=== PATIENT | male | born 1945 | race Caucasian/White ===

== ENCOUNTER → 2017-02-01 | Outpatient (CLI) | payer MEDICARE, MEDICAID ==
[~2017-02-01] MED LIST: ALBU0.63 NEB; ASPI-515 PO; ASPI-770 PO; CYCL-259 PO; DIAZ10TA PO; GABA100C8 PO; IBUP400T PO; LISI-167 PO; LISI10TA PO; LISI2.5T PO; LISI5TAB7 PO; LORA-446 PO; MELO15TA6; METH500T97 PO; METO25TA35 PO; METO25TA91 PO; NICO1PAT10 TD; NICO1PAT5 TD; NITR0.4T SL; NITR0.4T8 SL; OXYC10TA6 PO; PANT40TA3 PO; TIOT18CA INH; TRAM-28 PO; TRAM50TA2; TRAM50TA2 PO
[2017-02-01 13:46] LABS: BLOOD UREA NITROGEN 24 mg/dL (7-18)
[2017-02-01 13:50] LABS: ASPARTATE AMINO TRANSFERASE 15 U/L (15-37)
== END | disposition home or self-care (01) ==
LOC: LAB 11:06
PROVIDERS: ATTEND Nurse Practitioner Family
DX: I10 Essential (primary) hypertension (principal); K86.1 Other chronic pancreatitis; E78.2 Mixed hyperlipidemia; M43.06 Spondylolysis, lumbar region; R05 Cough
CPT/HCPCS: 36415; 80053; 80061; 85025

== ENCOUNTER 2017-03-06 12:49 | Observation (INO) | payer MEDICARE, MEDICAID ==
[~2017-03-06] VITALS: Ht 170.2 cm; Wt 66.9 kg
[2017-03-06] MEDS ORDERED: ASPIRIN 81 MG TABLET CHEW PO ONE (13:30)
[2017-03-06] MEDS ORDERED: METO25TA35 PO (13:39)
[2017-03-06] MEDS ORDERED: SIMV20TA3 PO (13:39)
[2017-03-06 14:09] LABS: BLOOD UREA NITROGEN 23 mg/dL (7-18)
[2017-03-06 14:14] LABS: ASPARTATE AMINO TRANSFERASE 23 U/L (15-37)
[2017-03-06 14:18] LABS: IS PT STATUS REG ER OR PRE ER? YES
[2017-03-06] MEDS ORDERED: ENALAPRILAT 1.25 MG/ML, 2ML ONE (16:23)
[2017-03-06] MEDS ORDERED: METHOCARBAMOL 500 MG TABLET PO PRN (16:30)
[2017-03-06] MEDS ORDERED: DOCUSATE 100 MG CAPSULE PO PRN (16:30)
[2017-03-06] MEDS ORDERED: NITROGLYCERIN 0.4 MG BOTTLE (25 TABS) SL PRN (16:30)
[2017-03-06] MEDS ORDERED: ENALAPRILAT 1.25 MG/ML, 2ML IV PRN (16:30)
[2017-03-06] MEDS ORDERED: POLYETHYLENE GLYCOL 17 GM PACKET PO PRN (16:30)
[2017-03-06] MEDS ORDERED: BISACODYL 10 MG SUPP PR PRN (16:30)
[2017-03-06] MEDS ORDERED: ACETAMINOPHEN 325 MG TABLET PO PRN (16:30)
[2017-03-06 17:10] VITALS: BP 155/77
[2017-03-06] MEDS ORDERED: NICOTINE 14MG/24 HR PATCH.TD24 TD SCH (17:30)
[2017-03-06 19:16] LABS: IS PT STATUS REG ER OR PRE ER? NO
[2017-03-06 20:01] VITALS: BP 102/60
[2017-03-06] MEDS: FAMOTIDINE 20 MG TABLET PO SCH (20:08)
[2017-03-06] MEDS: METOPROLOL TARTRATE 25 MG TABLET PO SCH (20:08)
[2017-03-06] MEDS ORDERED: SIMVASTATIN 20 MG TABLET PO SCH (21:00)
[2017-03-06] MEDS ORDERED: TEMAZEPAM 15 MG CAPSULE PO PRN (22:00)
[2017-03-07 01:40] LABS: IS PT STATUS REG ER OR PRE ER? NO
[2017-03-07 01:44] VITALS: BP 95/64
[2017-03-07 06:04] LABS: BLOOD UREA NITROGEN 26 mg/dL (7-18)
[2017-03-07 08:09] VITALS: BP 124/74
[2017-03-07] MEDS ORDERED: REGADENOSON 0.4 MG/5 ML SYRINGE ONE (08:14)
[2017-03-07] MEDS: FAMOTIDINE 20 MG TABLET PO SCH (08:16)
[2017-03-07] MEDS: METOPROLOL TARTRATE 25 MG TABLET PO SCH (08:16)
[2017-03-07] MEDS ORDERED: FOLIC ACID 1 MG TABLET PO SCH (09:00)
[2017-03-07] MEDS ORDERED: THIAMINE 100MG TABLET PO SCH (09:00)
[2017-03-07] MEDS ORDERED: DIAZEPAM 5 MG TABLET PO STA (09:11)
[2017-03-07] MEDS ORDERED: DIAZEPAM 5 MG TABLET ONE (09:15)
[2017-03-07 13:48] VITALS: BP 115/68
[2017-03-07] MEDS ORDERED: SIMV20TA3 PO (17:00)
[2017-03-07] MEDS ORDERED: METO25TA35 PO (17:00)
== END 2017-03-07 17:53 | disposition home or self-care (01) ==
LOC: ED 14:17 → INTOOBSV 15:12 → EDIP 15:12 → 5SO 17:04
PROVIDERS: ADMIT Hospitalist; ATTEND Family Medicine
DX: R07.2 Precordial pain (principal); Z86.73 Personal history of transient ischemic attack (TIA), and cerebral infarction without residual deficits; I10 Essential (primary) hypertension; I25.2 Old myocardial infarction; G89.29 Other chronic pain; M54.9 Dorsalgia, unspecified; F17.210 Nicotine dependence, cigarettes, uncomplicated; Z95.1 Presence of aortocoronary bypass graft; I25.10 Atherosclerotic heart disease of native coronary artery without angina pectoris; E78.5 Hyperlipidemia, unspecified
CPT/HCPCS: 36415; 71010; 78452; 80048; 80053; 80061; 84484; 85025; 93005; 93017; 96374; 99285; A9502; C9898; G0378; J2785

== ENCOUNTER 2017-03-11 11:41 | Emergency (ER) | payer MEDICARE, MEDICAID ==
[~2017-03-11] VITALS: Ht 165.1 cm; Wt 65.5 kg
[~2017-03-11 11:41] MED LIST changes: +SIMV20TA3 PO
[2017-03-11] MEDS ORDERED: KETOROLAC 30 MG/1 ML ONE (12:29)
[2017-03-11] MEDS ORDERED: ONDANSETRON 2MG/ML, 2ML ONE (12:29)
[2017-03-11] MEDS ORDERED: [UNRECOGNIZED DRUG - REMARK] MC SCH (12:30)
[2017-03-11] MEDS ORDERED: SODIUM CHLORIDE FLUSH 10ML SYR IVF ONE (12:30)
[2017-03-11] MEDS ORDERED: KETOROLAC 30 MG/1 ML IV ONE (12:30)
[2017-03-11] MEDS ORDERED: ONDANSETRON 2MG/ML, 2ML IVPush ONE (12:30)
[2017-03-11] MEDS ORDERED: MORPHINE SULFATE 4 MG/ML, 1ML ONE ×2 (13:25→14:38)
[2017-03-11] MEDS: MORPHINE SULFATE 4 MG/ML, 1ML IVPush PRN ×2 (13:34→14:39)
[2017-03-11 14:36] VITALS: BP 111/65
== END 2017-03-11 15:24 | disposition home or self-care (01) ==
LOC: ED 15:18
DX: S39.012A Strain of muscle, fascia and tendon of lower back, initial encounter (principal); M51.36 Other intervertebral disc degeneration, lumbar region; I11.9 Hypertensive heart disease without heart failure; E11.9 Type 2 diabetes mellitus without complications; Z95.1 Presence of aortocoronary bypass graft; Z90.89 Acquired absence of other organs; W19.XXXA Unspecified fall, initial encounter; Y93.89 Activity, other specified; Y99.8 Other external cause status; Y92.009 Unspecified place in unspecified non-institutional (private) residence as the place of occurrence of the external cause
CPT/HCPCS: 70450; 72110; 96374; 96375; 96376; 99284; J2405

== ENCOUNTER 2017-03-30 08:41 | Emergency (ER) | payer MEDICARE, MEDICAID ==
[~2017-03-30] VITALS: Ht 170.2 cm; Wt 68.5 kg
[~2017-03-30 08:41] MED LIST changes: +GABA-826 PO; -GABA100C8 PO
[2017-03-30 08:43] VITALS: BP 146/78
[2017-03-30] MEDS ORDERED: HYDROcodone/APAP 5/325 TABLET PO PRN (10:00)
[2017-03-30] MEDS ORDERED: HYDROcodone/APAP 5/325 TABLET ONE (10:05)
== END 2017-03-30 10:12 | disposition home or self-care (01) ==
LOC: ED 10:10
DX: M54.41 Lumbago with sciatica, right side (principal); E11.9 Type 2 diabetes mellitus without complications; M19.90 Unspecified osteoarthritis, unspecified site; I25.2 Old myocardial infarction; G89.29 Other chronic pain

== ENCOUNTER 2017-04-12 16:49 | Emergency (ER) | payer MEDICARE, MEDICAID ==
[~2017-04-12] VITALS: Ht 170.2 cm; Wt 65.0 kg
[2017-04-12 17:02] VITALS: BP 166/91
[2017-04-12] MEDS ORDERED: SODIUM CHLORIDE FLUSH 10ML SYR IVF ONE (17:30)
[2017-04-12 17:51] LABS: ASPARTATE AMINO TRANSFERASE 21 U/L (15-37); BLOOD UREA NITROGEN 13 mg/dL (7-18)
[2017-04-12 17:55] LABS: IS PT STATUS REG ER OR PRE ER? YES
[2017-04-12] MEDS ORDERED: SODIUM CHLORIDE 0.9% 1,000 ML IV ONE (18:00)
== END 2017-04-12 20:35 | disposition left against medical advice (07) ==
LOC: ED 20:29
DX: R53.1 Weakness (principal); W19.XXXA Unspecified fall, initial encounter; Y93.89 Activity, other specified; Y99.8 Other external cause status; Y92.89 Other specified places as the place of occurrence of the external cause
CPT/HCPCS: 36415; 70450; 71010; 80053; 83880; 84484; 85025; 93005; 99285

== ENCOUNTER 2017-06-27 04:47 | Inpatient (IN) | payer MEDICARE, MEDICAID ==
[~2017-06-27] VITALS: Ht 162.6 cm; Wt 67.8 kg
[~2017-06-27 04:47] MED LIST changes: +IBUP-1221 PO; -IBUP400T PO; +NICO-485 TD; +NICO-487 TD; -NICO1PAT10 TD; -NICO1PAT5 TD; +NITR0.4T28 SL; -NITR0.4T8 SL; -TRAM-28 PO; +TRAM-47 PO
[2017-06-27] MEDS ORDERED: ALBUTEROL/IPRATROPIUM 2.5MG/0.5MG, 3 ML NPPB ONE (05:30)
[2017-06-27] MEDS ORDERED: ALBUTEROL/IPRATROPIUM 2.5MG/0.5MG, 3 ML ONE (05:32)
[2017-06-27 06:25] LABS: HEMATOCRIT 37.6 % (39.2-51.8); HEMOGLOBIN 12.6 g/dL (13.7-18.0); WHITE BLOOD COUNT 12.1 x10^3/uL (3.4-10)
[2017-06-27 06:35] LABS: BLOOD UREA NITROGEN 13 mg/dL (7-18)
[2017-06-27 06:43] LABS: IS PT STATUS REG ER OR PRE ER? YES
[2017-06-27] MEDS ORDERED: FUROSEMIDE 40 MG/4 ML IV ONE (07:00)
[2017-06-27] MEDS ORDERED: ASPIRIN 81 MG TABLET CHEW PO ONE (07:00)
[2017-06-27] MEDS ORDERED: FUROSEMIDE 40 MG/4 ML ONE (07:42)
[2017-06-27 08:29] VITALS: BP 119/58
[2017-06-27] MEDS: NICOTINE 7 MG/24 HR PATCH.TD24 TD SCH (10:30)
[2017-06-27] MEDS ORDERED: GUAIFENESIN/DM 200-20MG, 10ML UDC PO PRN (10:30)
[2017-06-27] MEDS ORDERED: METHOCARBAMOL 500 MG TABLET PO PRN (10:30)
[2017-06-27] MEDS ORDERED: BISACODYL 10 MG SUPP PR PRN (10:30)
[2017-06-27] MEDS ORDERED: ACETAMINOPHEN 325 MG TABLET PO PRN (10:30)
[2017-06-27] MEDS ORDERED: PROMETHAZINE 25 MG/ML, 1ML IM PRN (10:30)
[2017-06-27] MEDS ORDERED: DOCUSATE 100 MG CAPSULE PO PRN (10:30)
[2017-06-27] MEDS ORDERED: POLYETHYLENE GLYCOL 17 GM PACKET PO PRN (10:30)
[2017-06-27] MEDS: DOXYCYCLINE 100 MG in DEXTROSE 5% 250 ML IV SCH ×2 (11:31→23:42)
[2017-06-27] MEDS: methylPREDNISolone SOD SUCC 125 MG/2 ML IVPush SCH ×3 (11:33→23:42)
[2017-06-27] MEDS: ENOXAPARIN 40 MG/0.4 ML SQ SCH (11:34)
[2017-06-27] MEDS ORDERED: ALBUTEROL SULFATE 2.5 MG/3 ML ONE (15:58)
[2017-06-27] MEDS ORDERED: ALBUTEROL SULFATE 2.5 MG/3 ML NPPB PRN (16:00)
[2017-06-27 16:04] VITALS: BP 129/80
[2017-06-27] MEDS: FUROSEMIDE 20 MG/2 ML IV SCH (17:45)
[2017-06-27 19:30] VITALS: BP 113/53
[2017-06-27] MEDS: SIMVASTATIN 20 MG TABLET PO SCH (19:54)
[2017-06-27 19:55] VITALS: BP 129/73
[2017-06-27] MEDS: METOPROLOL TARTRATE 25 MG TABLET PO SCH (19:55)
[2017-06-28 02:00] VITALS: BP 116/70
[2017-06-28] MEDS: methylPREDNISolone SOD SUCC 125 MG/2 ML IVPush SCH ×5 (05:47→22:30)
[2017-06-28 06:12] LABS: HEMATOCRIT 43.8 % (39.2-51.8); HEMOGLOBIN 14.4 g/dL (13.7-18.0); WHITE BLOOD COUNT 18.8 x10^3/uL (3.4-10)
[2017-06-28 06:20] LABS: BLOOD UREA NITROGEN 28 mg/dL (7-18)
[2017-06-28 06:32] LABS: ASPARTATE AMINO TRANSFERASE 12 U/L (15-37)
[2017-06-28 08:25] VITALS: BP 138/67
[2017-06-28] MEDS: SENNA/DOCUSATE TABLET PO SCH (09:00)
[2017-06-28] MEDS: FUROSEMIDE 20 MG/2 ML IV SCH ×2 (09:06→17:52)
[2017-06-28] MEDS: METOPROLOL TARTRATE 25 MG TABLET PO SCH ×2 (09:06→21:44)
[2017-06-28] MEDS: NICOTINE 7 MG/24 HR PATCH.TD24 TD SCH (10:30)
[2017-06-28] MEDS: DOXYCYCLINE 100 MG in DEXTROSE 5% 250 ML IV SCH ×2 (11:00→21:45)
[2017-06-28] MEDS: ENOXAPARIN 40 MG/0.4 ML SQ SCH (12:05)
[2017-06-28 14:00] VITALS: BP 115/68
[2017-06-28 20:00] VITALS: BP 124/61
[2017-06-28] MEDS: SIMVASTATIN 20 MG TABLET PO SCH (21:44)
[2017-06-28] MEDS: ONDANSETRON 2MG/ML, 2ML IVPush PRN (21:46)
[2017-06-29 02:00] VITALS: BP 114/75
[2017-06-29] MEDS: methylPREDNISolone SOD SUCC 125 MG/2 ML IVPush SCH ×3 (04:44→16:50)
[2017-06-29 05:45] LABS: BLOOD UREA NITROGEN 31 mg/dL (7-18)
[2017-06-29 05:56] LABS: HEMATOCRIT 42.3 % (39.2-51.8); HEMOGLOBIN 14.2 g/dL (13.7-18.0); WHITE BLOOD COUNT 23.5 x10^3/uL (3.4-10)
[2017-06-29 07:16] VITALS: BP 131/69
[2017-06-29] MEDS: NICOTINE 7 MG/24 HR PATCH.TD24 TD SCH (11:43)
[2017-06-29] MEDS: SENNA/DOCUSATE TABLET PO SCH (11:43)
[2017-06-29] MEDS: METOPROLOL TARTRATE 25 MG TABLET PO SCH ×2 (11:43→19:58)
[2017-06-29] MEDS: FUROSEMIDE 20 MG/2 ML IV SCH ×2 (11:43→16:50)
[2017-06-29] MEDS: ENOXAPARIN 40 MG/0.4 ML SQ SCH (11:44)
[2017-06-29] MEDS: DOXYCYCLINE 100 MG in DEXTROSE 5% 250 ML IV SCH (11:49)
[2017-06-29 12:32] VITALS: BP 119/63
[2017-06-29 18:41] VITALS: BP 105/55
[2017-06-29] MEDS: SIMVASTATIN 20 MG TABLET PO SCH (19:58)
[2017-06-30] MEDS: DOXYCYCLINE 100 MG in DEXTROSE 5% 250 ML IV SCH ×2 (00:07→12:17)
[2017-06-30] MEDS: methylPREDNISolone SOD SUCC 125 MG/2 ML IVPush SCH ×4 (00:07→17:47)
[2017-06-30 01:19] VITALS: BP 114/61
[2017-06-30] MEDS: ONDANSETRON 2MG/ML, 2ML IVPush PRN (05:12)
[2017-06-30 06:32] VITALS: BP 109/59
[2017-06-30] MEDS: SENNA/DOCUSATE TABLET PO SCH (09:00)
[2017-06-30] MEDS: FUROSEMIDE 20 MG/2 ML IV SCH ×2 (09:04→17:47)
[2017-06-30] MEDS: METOPROLOL TARTRATE 25 MG TABLET PO SCH ×2 (09:04→20:23)
[2017-06-30] MEDS: NICOTINE 7 MG/24 HR PATCH.TD24 TD SCH (12:00)
[2017-06-30] MEDS: ENOXAPARIN 40 MG/0.4 ML SQ SCH (12:23)
[2017-06-30 12:30] VITALS: BP 106/56
[2017-06-30 18:26] VITALS: BP 107/54
[2017-06-30] MEDS: SIMVASTATIN 20 MG TABLET PO SCH (20:23)
[2017-07-01] MEDS: DOXYCYCLINE 100 MG in DEXTROSE 5% 250 ML IV SCH ×3 (00:03→23:46)
[2017-07-01] MEDS: methylPREDNISolone SOD SUCC 125 MG/2 ML IVPush SCH ×5 (00:03→23:46)
[2017-07-01 02:08] VITALS: BP 125/60
[2017-07-01 04:56] LABS: HEMATOCRIT 43.7 % (39.2-51.8); HEMOGLOBIN 14.8 g/dL (13.7-18.0); WHITE BLOOD COUNT 19.2 x10^3/uL (3.4-10)
[2017-07-01 05:11] LABS: BLOOD UREA NITROGEN 29 mg/dL (7-18)
[2017-07-01 07:22] VITALS: BP 144/65
[2017-07-01] MEDS: FUROSEMIDE 20 MG/2 ML IV SCH ×2 (08:18→17:15)
[2017-07-01] MEDS: METOPROLOL TARTRATE 25 MG TABLET PO SCH ×2 (08:18→22:00)
[2017-07-01] MEDS: SENNA/DOCUSATE TABLET PO SCH (08:19)
[2017-07-01] MEDS: NICOTINE 7 MG/24 HR PATCH.TD24 TD SCH (12:00)
[2017-07-01] MEDS: ENOXAPARIN 40 MG/0.4 ML SQ SCH (12:12)
[2017-07-01 12:43] VITALS: BP 120/65
[2017-07-01 19:35] VITALS: BP 104/59
[2017-07-01] MEDS: SIMVASTATIN 20 MG TABLET PO SCH (22:00)
[2017-07-02 02:58] VITALS: BP 131/61
[2017-07-02 05:32] LABS: HEMATOCRIT 44.3 % (39.2-51.8); HEMOGLOBIN 14.7 g/dL (13.7-18.0); WHITE BLOOD COUNT 20.8 x10^3/uL (3.4-10)
[2017-07-02 05:49] LABS: BLOOD UREA NITROGEN 33 mg/dL (7-18)
[2017-07-02] MEDS: methylPREDNISolone SOD SUCC 125 MG/2 ML IVPush SCH (06:31)
[2017-07-02 07:32] VITALS: BP 141/75
[2017-07-02] MEDS: METOPROLOL TARTRATE 25 MG TABLET PO SCH (08:39)
[2017-07-02] MEDS: FUROSEMIDE 20 MG/2 ML IV SCH (08:39)
[2017-07-02] MEDS: SENNA/DOCUSATE TABLET PO SCH (08:39)
[2017-07-02] MEDS ORDERED: ENOX40SY4 SQ (11:54)
[2017-07-02] MEDS ORDERED: PRED10TA PO (11:54)
[2017-07-02] MEDS ORDERED: ALBU2.5V NPPB (11:54)
[2017-07-02] MEDS ORDERED: NICO-485 TD (11:54)
[2017-07-02] MEDS ORDERED: POLY17PO5 PO (11:54)
[2017-07-02] MEDS ORDERED: FURO20TA3 PO (11:54)
[2017-07-02] MEDS ORDERED: METO25TA35 PO (11:54)
[2017-07-02] MEDS ORDERED: DOCU-131 PO (11:54)
[2017-07-02] MEDS ORDERED: DOXY100T PO (11:54)
[2017-07-02] MEDS ORDERED: BISA10SU65 PR (11:54)
[2017-07-02] MEDS ORDERED: SPIR25TA PO (11:54)
[2017-07-02] MEDS ORDERED: FLUT1AER INH (11:56)
[2017-07-02] MEDS: ENOXAPARIN 40 MG/0.4 ML SQ SCH (12:00)
[2017-07-02] MEDS: NICOTINE 7 MG/24 HR PATCH.TD24 TD SCH (12:00)
[2017-07-02 13:49] VITALS: BP 117/67
[2017-07-02] MEDS ORDERED: DOXYCYCLINE 100MG TABLET PO SCH (21:00)
[2017-07-03] MEDS ORDERED: SPIRONOLACTONE 25 MG TABLET PO SCH (09:00)
[2017-07-03] MEDS ORDERED: FUROSEMIDE 20 MG TABLET PO SCH (09:00)
== END 2017-07-02 18:00 | DRG 871 ==
LOC: ED 06:57 → 4WST 06:58 → ED 08:00 → 4WST 08:15 → ED 08:15
PROVIDERS: ADMIT Internal Medicine; ATTEND Internal Medicine
DX: A41.9 Sepsis, unspecified organism (principal); J96.21 Acute and chronic respiratory failure with hypoxia; E43 Unspecified severe protein-calorie malnutrition; I50.33 Acute on chronic diastolic (congestive) heart failure; J18.9 Pneumonia, unspecified organism; I11.0 Hypertensive heart disease with heart failure; I69.954 Hemiplegia and hemiparesis following unspecified cerebrovascular disease affecting left non-dominant side; G62.9 Polyneuropathy, unspecified; D63.8 Anemia in other chronic diseases classified elsewhere; J44.0 Chronic obstructive pulmonary disease with (acute) lower respiratory infection; E87.1 Hypo-osmolality and hyponatremia; J44.1 Chronic obstructive pulmonary disease with (acute) exacerbation; E86.1 Hypovolemia; E78.5 Hyperlipidemia, unspecified; F10.20 Alcohol dependence, uncomplicated; G89.29 Other chronic pain; F17.210 Nicotine dependence, cigarettes, uncomplicated; F19.10 Other psychoactive substance abuse, uncomplicated; I25.10 Atherosclerotic heart disease of native coronary artery without angina pectoris; I08.0 Rheumatic disorders of both mitral and aortic valves; I73.9 Peripheral vascular disease, unspecified; T38.0X5A Adverse effect of glucocorticoids and synthetic analogues, initial encounter; Z95.1 Presence of aortocoronary bypass graft; I25.2 Old myocardial infarction; Z79.899 Other long term (current) drug therapy; Z88.6 Allergy status to analgesic agent
CPT/HCPCS: 36415; 71010; 80048; 80053; 82040; 83605; 83735; 83880; 84100; 84145; 84439; 84443; 84484; 85025; 87040; 93005; 93306; 94640; 96374; J1650; J1940; J2405; J7060; J7613; J7620; J2930; J7512

== ENCOUNTER 2017-11-04 22:17 | Emergency (ER) | payer MEDICARE, MEDICAID ==
[~2017-11-04] VITALS: Ht 170.2 cm; Wt 70.1 kg
[~2017-11-04 22:17] MED LIST changes: +ALBU2.5V NPPB; +BISA10SU65 PR; +DOCU-131 PO; +DOXY100T PO; +ENOX40SY4 SQ; +FLUT1AER INH; +FURO20TA3 PO; +POLY17PO5 PO; +PRED10TA PO; +SPIR25TA PO
[2017-11-04 23:03] LABS: BASOPHILS # (AUTO) 0.03 x10^3/uL (0-0.1); BASOPHILS % (AUTO) 0 % (0-1); EOSINOPHILS % (AUTO) 7 % (1-7); LYMPHOCYTES # (AUTO) 2.39 x10^3/uL (1-3.4); LYMPHOCYTES % (AUTO) 26 % (22-44); MD NO; MEAN CORPUSCULAR HEMOGLOBIN 31.6 pg (27.5-34.5); MEAN CORPUSCULAR HGB CONC 33.3 g/dL (33.2-36.2); MEAN CORPUSCULAR VOLUME 94.8 fL (81-97); MEAN PLATELET VOLUME 8.2 fL (7.4-10.4); MONOCYTES # (AUTO) 0.81 x10^3/uL (0.2-0.8); MONOCYTES % (AUTO) 9 % (2-9); NEUTROPHILS # (AUTO) 5.27 x10^3/uL (1.8-6.8); NEUTROPHILS % (AUTO) 58 % (42-75); PLATELET COUNT 272 x10^3/uL (130-400); RED CELL DISTRIBUTION WIDTH 13.9 % (9.4-14.8)
[2017-11-04 23:13] LABS: ALANINE AMINOTRANSFERASE 25 U/L (12-78); ALBUMIN 3.4 g/dL (3.4-5.0); ANION GAP 9 mmol/L (5-15); CALCIUM 8.7 mg/dL (8.5-10.1); CHLORIDE 108 mmol/L (98-107); CREATININE 0.97 mg/dL (0.7-1.3)
[2017-11-04 23:18] LABS: ALKALINE PHOSPHATASE 85 U/L (45-117); BILIRUBIN,TOTAL 0.2 mg/dL (0.2-1.0); TOTAL PROTEIN 7.6 g/dL (6.4-8.2); TROPONIN I < 0.015 ng/mL (0.000-0.045)
[2017-11-04 23:34] LABS: RAPID INFLUENZA A Negative (Negative); RAPID INFLUENZA B Negative (Negative)
[2017-11-05 00:06] LABS: MICROSCOPIC AUTO
[2017-11-05 00:08] LABS: CULTURE INDICATED? NO
[2017-11-05] MEDS ORDERED: ACETAMINOPHEN 500 MG TABLET ONE (00:27)
[2017-11-05] MEDS ORDERED: METOCLOPRAMIDE 5 MG/ML, 2ML ONE (00:27)
[2017-11-05] MEDS ORDERED: METOCLOPRAMIDE 5 MG/ML, 2ML IVPush ONE (00:30)
[2017-11-05] MEDS ORDERED: ACETAMINOPHEN 500 MG TABLET PO ONE (00:30)
[2017-11-05 00:33] VITALS: BP 157/89
== END 2017-11-05 00:54 | disposition home or self-care (01) ==
LOC: ED 23:24
DX: R10.13 Epigastric pain (principal); R51 Headache; R19.7 Diarrhea, unspecified; I11.9 Hypertensive heart disease without heart failure; I25.2 Old myocardial infarction; M19.90 Unspecified osteoarthritis, unspecified site; E11.9 Type 2 diabetes mellitus without complications
CPT/HCPCS: 36415; 71046; 76700; 80053; 81001; 84484; 85025; 87400; 93005; 96374; 99285; J2765

== ENCOUNTER 2017-11-11 03:11 | Emergency (ER) | payer MEDICARE, MEDICAID ==
[~2017-11-11] VITALS: Ht 167.6 cm; Wt 70.8 kg
[2017-11-11 03:13] VITALS: BP 173/83
== END 2017-11-11 05:22 | disposition home or self-care (01) ==
LOC: ED 03:50
DX: S39.012A Strain of muscle, fascia and tendon of lower back, initial encounter (principal); I10 Essential (primary) hypertension; E11.9 Type 2 diabetes mellitus without complications; M19.90 Unspecified osteoarthritis, unspecified site; I25.2 Old myocardial infarction; Z95.1 Presence of aortocoronary bypass graft; Z86.73 Personal history of transient ischemic attack (TIA), and cerebral infarction without residual deficits; W18.39XA Other fall on same level, initial encounter; Y93.01 Activity, walking, marching and hiking; Y99.8 Other external cause status; Y92.59 Other trade areas as the place of occurrence of the external cause
CPT/HCPCS: 72110; 99284

== ENCOUNTER 2017-12-23 12:37 | Emergency (ER) | payer MEDICARE, MEDICAID ==
[~2017-12-23] VITALS: Ht 170.2 cm; Wt 70.0 kg
[~2017-12-23 12:37] MED LIST changes: +ATOR10TA PO; +HYDR-3240 PO
[2017-12-23] MEDS ORDERED: ONDANSETRON ODT 4 MG ONE (13:07)
[2017-12-23 13:10] VITALS: BP 128/73
[2017-12-23] MEDS ORDERED: ONDANSETRON ODT 4 MG PO ONE (13:30)
[2017-12-23 13:31] LABS: ALANINE AMINOTRANSFERASE 25 U/L (12-78); ALBUMIN 3.7 g/dL (3.4-5.0); ANION GAP 9 mmol/L (5-15); CALCIUM 8.7 mg/dL (8.5-10.1); CHLORIDE 107 mmol/L (98-107); CREATININE 0.98 mg/dL (0.7-1.3)
[2017-12-23 13:34] LABS: ALKALINE PHOSPHATASE 78 U/L (45-117); BILIRUBIN,TOTAL 0.5 mg/dL (0.2-1.0); TOTAL PROTEIN 7.6 g/dL (6.4-8.2)
[2017-12-23 14:18] LABS: BASOPHILS # (AUTO) 0.04 x10^3/uL (0-0.1); BASOPHILS % (AUTO) 1 % (0-1); EOSINOPHILS # (AUTO) 0.19 x10^3/uL (0-0.4); EOSINOPHILS % (AUTO) 3 % (1-7); LYMPHOCYTES # (AUTO) 1.89 x10^3/uL (1-3.4); LYMPHOCYTES % (AUTO) 27 % (22-44); MD NO; MEAN CORPUSCULAR HEMOGLOBIN 31.5 pg (27.5-34.5); MEAN CORPUSCULAR HGB CONC 33.9 g/dL (33.2-36.2); MEAN CORPUSCULAR VOLUME 93.1 fL (81-97); MEAN PLATELET VOLUME 8.8 fL (7.4-10.4); MONOCYTES # (AUTO) 0.97 x10^3/uL (0.2-0.8); MONOCYTES % (AUTO) 14 % (2-9); NEUTROPHILS % (AUTO) 56 % (42-75); PLATELET COUNT 219 x10^3/uL (130-400); RED BLOOD COUNT 4.77 x10^6/uL (4.38-5.82); RED CELL DISTRIBUTION WIDTH 14.2 % (9.4-14.8)
== END 2017-12-23 15:39 | disposition home or self-care (01) ==
LOC: ED 13:21
DX: S06.0X0A Concussion without loss of consciousness, initial encounter (principal); Z95.1 Presence of aortocoronary bypass graft; I10 Essential (primary) hypertension; M54.5 Low back pain; G89.29 Other chronic pain; I25.10 Atherosclerotic heart disease of native coronary artery without angina pectoris; M19.90 Unspecified osteoarthritis, unspecified site; F17.210 Nicotine dependence, cigarettes, uncomplicated; W00.0XXA Fall on same level due to ice and snow, initial encounter; Y93.89 Activity, other specified; Y99.8 Other external cause status; Y92.89 Other specified places as the place of occurrence of the external cause
CPT/HCPCS: 36415; 70450; 80053; 85025; 93005; 99285; Q0162

== ENCOUNTER 2017-12-24 05:02 | Emergency (ER) | payer MEDICARE, MEDICAID | END 2017-12-24 05:08 | disposition left against medical advice (07) | LOC: ED 05:02 | DX: Z53.21 Procedure and treatment not carried out due to patient leaving prior to being seen by health care provider (principal) ==

== ENCOUNTER 2017-12-24 23:11 | Emergency (ER) | payer MEDICARE, MEDICAID ==
[~2017-12-24] VITALS: Ht 170.2 cm; Wt 71.5 kg
[2017-12-24 23:13] VITALS: BP 147/74
== END 2017-12-25 00:46 | disposition home or self-care (01) ==
LOC: ED 23:59
DX: S39.012A Strain of muscle, fascia and tendon of lower back, initial encounter (principal); I10 Essential (primary) hypertension; E11.9 Type 2 diabetes mellitus without complications; F10.20 Alcohol dependence, uncomplicated; I25.2 Old myocardial infarction; I77.9 Disorder of arteries and arterioles, unspecified; W18.39XA Other fall on same level, initial encounter; Y93.89 Activity, other specified; Y92.89 Other specified places as the place of occurrence of the external cause; Y99.8 Other external cause status; Z95.1 Presence of aortocoronary bypass graft; Z86.73 Personal history of transient ischemic attack (TIA), and cerebral infarction without residual deficits
CPT/HCPCS: 99281

== ENCOUNTER 2017-12-28 18:56 | Emergency (ER) | payer MEDICARE, MEDICAID ==
[~2017-12-28] VITALS: Ht 170.2 cm; Wt 70.0 kg
[2017-12-28 19:37] LABS: BASOPHILS # (AUTO) 0.05 x10^3/uL (0-0.1); BASOPHILS % (AUTO) 1 % (0-1); EOSINOPHILS # (AUTO) 0.27 x10^3/uL (0-0.4); EOSINOPHILS % (AUTO) 4 % (1-7); LYMPHOCYTES # (AUTO) 1.94 x10^3/uL (1-3.4); LYMPHOCYTES % (AUTO) 26 % (22-44); MD NO; MEAN CORPUSCULAR HEMOGLOBIN 31.5 pg (27.5-34.5); MEAN CORPUSCULAR HGB CONC 33.3 g/dL (33.2-36.2); MEAN CORPUSCULAR VOLUME 94.5 fL (81-97); MEAN PLATELET VOLUME 8.4 fL (7.4-10.4); MONOCYTES # (AUTO) 0.79 x10^3/uL (0.2-0.8); MONOCYTES % (AUTO) 11 % (2-9); NEUTROPHILS # (AUTO) 4.47 x10^3/uL (1.8-6.8); NEUTROPHILS % (AUTO) 60 % (42-75); PLATELET COUNT 219 x10^3/uL (130-400); RED BLOOD COUNT 4.46 x10^6/uL (4.38-5.82); RED CELL DISTRIBUTION WIDTH 14.5 % (9.4-14.8)
[2017-12-28 19:49] LABS: ALBUMIN 3.5 g/dL (3.4-5.0); ANION GAP 10 mmol/L (5-15); CALCIUM 8.3 mg/dL (8.5-10.1); CHLORIDE 108 mmol/L (98-107); CREATININE 0.92 mg/dL (0.7-1.3)
[2017-12-28 19:53] LABS: TROPONIN I < 0.015 ng/mL (0.000-0.045)
[2017-12-28 20:07] VITALS: BP 160/90
== END 2017-12-28 20:26 | disposition home or self-care (01) ==
LOC: ED 20:20
DX: R07.2 Precordial pain (principal); Z72.89 Other problems related to lifestyle; I25.810 Atherosclerosis of coronary artery bypass graft(s) without angina pectoris; E11.9 Type 2 diabetes mellitus without complications; I10 Essential (primary) hypertension; I25.2 Old myocardial infarction; Z86.73 Personal history of transient ischemic attack (TIA), and cerebral infarction without residual deficits; F10.20 Alcohol dependence, uncomplicated; Z95.1 Presence of aortocoronary bypass graft; Z88.8 Allergy status to other drugs, medicaments and biological substances; F17.210 Nicotine dependence, cigarettes, uncomplicated
CPT/HCPCS: 36415; 71045; 80048; 82040; 84484; 85025; 93005; 99285

== ENCOUNTER 2018-02-28 21:44 | Emergency (ER) | payer MEDICARE, MEDICAID ==
[~2018-02-28] VITALS: Ht 170.2 cm; Wt 65.0 kg
[~2018-02-28 21:44] MED LIST changes: -ASPI-770 PO; +ASPI81TA59 PO
[2018-02-28] MEDS ORDERED: METHOCARBAMOL 750 MG TABLET ONE (23:52)
[2018-02-28] MEDS ORDERED: HYDROcodone/APAP 5/325 TABLET ONE (23:53)
[2018-03-01] MEDS ORDERED: METHOCARBAMOL 750 MG TABLET PO ONE
[2018-03-01] MEDS ORDERED: HYDROcodone/APAP 5/325 TABLET PO ONE
[2018-03-01 00:35] LABS: MICROSCOPIC AUTO
[2018-03-01 00:36] LABS: CULTURE INDICATED? NO
[2018-03-01 01:37] VITALS: BP 163/90
== END 2018-03-01 01:40 | disposition home or self-care (01) ==
LOC: ED 23:21
DX: M54.5 Low back pain (principal); R30.0 Dysuria; I10 Essential (primary) hypertension; E11.9 Type 2 diabetes mellitus without complications; M19.90 Unspecified osteoarthritis, unspecified site; I25.810 Atherosclerosis of coronary artery bypass graft(s) without angina pectoris; I25.2 Old myocardial infarction; Z86.73 Personal history of transient ischemic attack (TIA), and cerebral infarction without residual deficits; F10.20 Alcohol dependence, uncomplicated; Z95.1 Presence of aortocoronary bypass graft
CPT/HCPCS: 81001; 99283

== ENCOUNTER 2018-08-16 17:23 | Inpatient (IN) | payer MEDICARE, MEDICAID ==
[~2018-08-16] VITALS: Ht 170.2 cm; Wt 69.4 kg
[2018-08-16] MEDS ORDERED: SODIUM CHLORIDE FLUSH 10ML SYR IVF ONE (17:30)
[2018-08-16 17:58] LABS: BASOPHILS # (AUTO) 0.03 x10^3/uL (0-0.1); BASOPHILS % (AUTO) 0 % (0-1); EOSINOPHILS % (AUTO) 3 % (1-7); LYMPHOCYTES # (AUTO) 1.71 x10^3/uL (1-3.4); LYMPHOCYTES % (AUTO) 23 % (22-44); MD NO; MEAN CORPUSCULAR HEMOGLOBIN 31.8 pg (27.5-34.5); MEAN CORPUSCULAR HGB CONC 33.3 g/dL (33.2-36.2); MEAN CORPUSCULAR VOLUME 95.6 fL (81-97); MEAN PLATELET VOLUME 8.8 fL (7.4-10.4); MONOCYTES # (AUTO) 0.62 x10^3/uL (0.2-0.8); MONOCYTES % (AUTO) 8 % (2-9); NEUTROPHILS # (AUTO) 4.99 x10^3/uL (1.8-6.8); NEUTROPHILS % (AUTO) 66 % (42-75); PLATELET COUNT 222 x10^3/uL (130-400); RED BLOOD COUNT 4.51 x10^6/uL (4.38-5.82); RED CELL DISTRIBUTION WIDTH 13.8 % (9.4-14.8)
[2018-08-16] MEDS ORDERED: MECLIZINE CHEWABLE 25 MG TAB PO ONE (18:00)
[2018-08-16] MEDS ORDERED: MECLIZINE CHEWABLE 25 MG TAB ONE (18:07)
[2018-08-16 18:12] LABS: ALBUMIN 3.3 g/dL (3.4-5.0); ANION GAP 5 mmol/L (5-15); CALCIUM 8.3 mg/dL (8.5-10.1); CHLORIDE 112 mmol/L (98-107)
[2018-08-16 18:20] LABS: ALANINE AMINOTRANSFERASE 26 U/L (12-78); ALKALINE PHOSPHATASE 79 U/L (45-117); BILIRUBIN,TOTAL 0.2 mg/dL (0.2-1.0); CREATININE 1.01 mg/dL (0.7-1.3); TOTAL PROTEIN 7.3 g/dL (6.4-8.2); TROPONIN I < 0.015 ng/mL (0.000-0.045)
[2018-08-16] MEDS ORDERED: SODIUM CHLORIDE FLUSH 10ML SYR IVF PRN (19:30)
[2018-08-16] MEDS ORDERED: SODIUM CHLORIDE 0.9% 1,000 ML IV SCH (19:31)
[2018-08-16] MEDS ORDERED: ONDANSETRON 2MG/ML, 2ML IVPush PRN (20:00)
[2018-08-16] MEDS ORDERED: ONDANSETRON ODT 4 MG PO PRN (20:00)
[2018-08-16] MEDS ORDERED: BISACODYL 10 MG SUPP PR PRN (20:00)
[2018-08-16] MEDS ORDERED: hydrALAzine 20 MG/ML, 1ML IVPush PRN (20:00)
[2018-08-16] MEDS ORDERED: ACETAMINOPHEN 325 MG TABLET PO PRN (20:00)
[2018-08-16] MEDS ORDERED: ALBUTEROL SULFATE 2.5 MG/3 ML NPPB PRN (20:00)
[2018-08-16] MEDS ORDERED: DOCUSATE 100 MG CAPSULE PO PRN (20:00)
[2018-08-16] MEDS ORDERED: POLYETHYLENE GLYCOL 17 GM PACKET PO PRN (20:00)
[2018-08-16] MEDS ORDERED: NITROGLYCERIN 0.4 MG BOTTLE (25 TABS) SL PRN (20:00)
[2018-08-16] MEDS ORDERED: LABETALOL 5MG/ML, 20ML IVPush PRN (20:00)
[2018-08-16] MEDS ORDERED: PROMETHAZINE 25 MG/ML, 1ML IM PRN (20:00)
[2018-08-16 20:13] LABS: FREE T4 (FREE THYROXINE) 0.99 ng/dL (0.76-1.46); THYROID STIMULATING HORMONE 0.953 mIU/L (0.358-3.740)
[2018-08-16 20:21] LABS: MICROSCOPIC NOT IND
[2018-08-16 20:24] LABS: CULTURE INDICATED? NO
[2018-08-16 20:34] LABS: AMPHETAMINE SCREEN, URINE Negative (Negative); BARBITURATE SCREEN, URINE Negative (Negative); BENZODIAZEPINE SCREEN, URINE Negative (Negative); CANNABINOID SCREEN, URINE Negative (Negative); COCAINE SCREEN, URINE Negative (Negative); METHADONE SCREEN, URINE Negative (Negative); OPIATE SCREEN, URINE Negative (Negative)
[2018-08-16 20:37] LABS: HEMOGLOBIN A1C 6.2 % (4.2-6.3)
[2018-08-16] MEDS: METOPROLOL TARTRATE 25 MG TABLET PO SCH (22:13)
[2018-08-16] MEDS: ATORVASTATIN 10 MG TABLET PO SCH (22:13)
[2018-08-16] MEDS: HEPARIN 5,000 UNITS/ML, 1ML SQ SCH (22:13)
[2018-08-16] MEDS: LOSARTAN 50MG TABLET PO SCH (22:13)
[2018-08-17 03:12] VITALS: BP 120/73
[2018-08-17] MEDS: HEPARIN 5,000 UNITS/ML, 1ML SQ SCH ×3 (04:00→22:01)
[2018-08-17] MEDS: ASPIRIN 81 MG TABLET EC PO SCH (04:01)
[2018-08-17 05:23] LABS: BASOPHILS # (AUTO) 0.04 x10^3/uL (0-0.1); BASOPHILS % (AUTO) 1 % (0-1); EOSINOPHILS # (AUTO) 0.29 x10^3/uL (0-0.4); EOSINOPHILS % (AUTO) 5 % (1-7); LYMPHOCYTES # (AUTO) 1.72 x10^3/uL (1-3.4); LYMPHOCYTES % (AUTO) 29 % (22-44); MD NO; MEAN CORPUSCULAR HEMOGLOBIN 31.7 pg (27.5-34.5); MEAN CORPUSCULAR HGB CONC 33.6 g/dL (33.2-36.2); MEAN CORPUSCULAR VOLUME 94.3 fL (81-97); MONOCYTES % (AUTO) 12 % (2-9); NEUTROPHILS # (AUTO) 3.08 x10^3/uL (1.8-6.8); NEUTROPHILS % (AUTO) 53 % (42-75); PLATELET COUNT 205 x10^3/uL (130-400); RED BLOOD COUNT 4.45 x10^6/uL (4.38-5.82); RED CELL DISTRIBUTION WIDTH 13.8 % (9.4-14.8)
[2018-08-17 05:37] LABS: CHLORIDE 114 mmol/L (98-107)
[2018-08-17 05:48] LABS: ALANINE AMINOTRANSFERASE 25 U/L (12-78); ALBUMIN 2.9 g/dL (3.4-5.0); ALKALINE PHOSPHATASE 71 U/L (45-117); ANION GAP 9 mmol/L (5-15); BILIRUBIN,TOTAL 0.4 mg/dL (0.2-1.0); CALCIUM 8.1 mg/dL (8.5-10.1); CHOL/HDL RATIO 3.2; CHOLESTEROL, TOTAL 137 mg/dL (140-239); CREATININE 0.84 mg/dL (0.7-1.3); HDL CHOL % 31 % (26-37); HDL CHOLESTEROL (DIRECT) 43 mg/dL (40-60); LDL CHOLESTEROL,CALCULATED 72 mg/dL (54-169); LDL/HDL RATIO 1.7 (0.5-3.0); TOTAL PROTEIN 6.4 g/dL (6.4-8.2); TRIGLYCERIDES 108 mg/dL (50-200); VLDL CHOLESTEROL 22 mg/dL (0-25)
[2018-08-17] MEDS: FLUTICASONE/VILANTEROL 100-25MCG/INH INH SCH (08:43)
[2018-08-17] MEDS: LOSARTAN 50MG TABLET PO SCH (08:43)
[2018-08-17] MEDS: METOPROLOL TARTRATE 25 MG TABLET PO SCH ×2 (08:43→22:02)
[2018-08-17 13:13] VITALS: BP 119/67
[2018-08-17] MEDS ORDERED: LORazepam 2 MG/ML, 1ML IVPush ONE (15:30)
[2018-08-17] MEDS ORDERED: LORazepam 2 MG/ML, 1ML ONE (15:34)
[2018-08-17] MEDS ORDERED: GADOBUTROL 7.5 MMOL/7.5 ML PFS ONE (15:59)
[2018-08-17 19:46] VITALS: BP 124/63
[2018-08-17] MEDS: ATORVASTATIN 10 MG TABLET PO SCH (22:01)
[2018-08-18 00:35] VITALS: BP 124/65
[2018-08-18] MEDS: HEPARIN 5,000 UNITS/ML, 1ML SQ SCH ×3 (06:09→21:31)
[2018-08-18] MEDS: ASPIRIN 81 MG TABLET EC PO SCH (06:09)
[2018-08-18 06:42] VITALS: BP 126/77
[2018-08-18 09:30] VITALS: BP 112/65
[2018-08-18] MEDS: FLUTICASONE/VILANTEROL 100-25MCG/INH INH SCH (09:32)
[2018-08-18] MEDS: LOSARTAN 50MG TABLET PO SCH (09:32)
[2018-08-18] MEDS: METOPROLOL TARTRATE 25 MG TABLET PO SCH ×2 (09:33→21:31)
[2018-08-18] MEDS ORDERED: MECLIZINE 12.5 MG TABLET PO PRN (10:00)
[2018-08-18 19:43] VITALS: BP 106/65
[2018-08-18] MEDS: ATORVASTATIN 10 MG TABLET PO SCH (21:31)
[2018-08-19 00:55] VITALS: BP 117/64
[2018-08-19] MEDS: ASPIRIN 81 MG TABLET EC PO SCH (05:43)
[2018-08-19] MEDS: HEPARIN 5,000 UNITS/ML, 1ML SQ SCH (05:43)
[2018-08-19 08:04] VITALS: BP 121/73
== END 2018-08-19 10:00 | disposition left against medical advice (07) | DRG 149 ==
LOC: ED 18:17 → EDIP 19:16 → 3NE 20:13
PROVIDERS: ADMIT Internal Medicine; ATTEND Internal Medicine
DX: R42 Dizziness and giddiness (principal); I10 Essential (primary) hypertension; Z91.14 Patient's other noncompliance with medication regimen; Z95.1 Presence of aortocoronary bypass graft; I25.10 Atherosclerotic heart disease of native coronary artery without angina pectoris; E11.40 Type 2 diabetes mellitus with diabetic neuropathy, unspecified; F10.20 Alcohol dependence, uncomplicated; M19.90 Unspecified osteoarthritis, unspecified site; H53.8 Other visual disturbances; M54.9 Dorsalgia, unspecified; G89.29 Other chronic pain; R47.81 Slurred speech; I11.9 Hypertensive heart disease without heart failure; E11.51 Type 2 diabetes mellitus with diabetic peripheral angiopathy without gangrene; Z53.21 Procedure and treatment not carried out due to patient leaving prior to being seen by health care provider; I25.2 Old myocardial infarction; Q27.9 Congenital malformation of peripheral vascular system, unspecified; Z83.2 Family history of diseases of the blood and blood-forming organs and certain disorders involving the immune mechanism; Z86.73 Personal history of transient ischemic attack (TIA), and cerebral infarction without residual deficits; Z87.891 Personal history of nicotine dependence; Z90.89 Acquired absence of other organs; T42.4X5A Adverse effect of benzodiazepines, initial encounter
CPT/HCPCS: 36415; 70450; 70553; 71045; 80053; 80061; 80307; 81003; 83036; 83735; 84439; 84443; 84484; 85025; 93005; A9585; G0378; J1644; Q0162; J2060; J7030

== ENCOUNTER 2018-08-26 19:03 | Emergency (ER) | payer MEDICARE, MEDICAID ==
[~2018-08-26] VITALS: Ht 172.7 cm; Wt 66.1 kg
[2018-08-26 20:21] VITALS: BP 117/75
== END 2018-08-26 21:26 | disposition home or self-care (01) ==
LOC: ED 21:15
DX: S39.012A Strain of muscle, fascia and tendon of lower back, initial encounter (principal); M47.896 Other spondylosis, lumbar region; I25.10 Atherosclerotic heart disease of native coronary artery without angina pectoris; E11.9 Type 2 diabetes mellitus without complications; I10 Essential (primary) hypertension; I25.2 Old myocardial infarction; G89.29 Other chronic pain; Z95.1 Presence of aortocoronary bypass graft; Z90.89 Acquired absence of other organs; Z86.73 Personal history of transient ischemic attack (TIA), and cerebral infarction without residual deficits; X58.XXXA Exposure to other specified factors, initial encounter; Y93.89 Activity, other specified; Y92.89 Other specified places as the place of occurrence of the external cause; Y99.8 Other external cause status
CPT/HCPCS: 72131; 99284

== ENCOUNTER 2018-09-03 18:10 | Emergency (ER) | payer MEDICARE, MEDICAID ==
[~2018-09-03] VITALS: Ht 170.2 cm; Wt 64.5 kg
[2018-09-03 18:48] VITALS: BP 117/61
[2018-09-03] MEDS ORDERED: METHOCARBAMOL 750 MG TABLET ONE (19:19)
[2018-09-03] MEDS ORDERED: HYDROcodone/APAP 5/325 TABLET ONE (19:19)
[2018-09-03] MEDS ORDERED: METHOCARBAMOL 750 MG TABLET PO ONE (19:30)
[2018-09-03] MEDS ORDERED: HYDROcodone/APAP 5/325 TABLET PO ONE (19:30)
== END 2018-09-03 20:20 | disposition home or self-care (01) ==
LOC: ED 20:05
DX: M51.36 Other intervertebral disc degeneration, lumbar region (principal); M54.5 Low back pain; M19.90 Unspecified osteoarthritis, unspecified site; M54.2 Cervicalgia; I25.10 Atherosclerotic heart disease of native coronary artery without angina pectoris; E11.40 Type 2 diabetes mellitus with diabetic neuropathy, unspecified; I25.2 Old myocardial infarction; I10 Essential (primary) hypertension; F17.200 Nicotine dependence, unspecified, uncomplicated
CPT/HCPCS: 72050; 72110; 99283

== ENCOUNTER 2018-10-18 19:28 | Emergency (ER) | payer MEDICARE, MEDICAID ==
[~2018-10-18] VITALS: Ht 170.2 cm; Wt 62.3 kg
[2018-10-18 19:50] VITALS: BP 131/64
== END 2018-10-18 21:16 | disposition home or self-care (01) ==
LOC: ED 21:12
DX: Z46.6 Encounter for fitting and adjustment of urinary device (principal); I25.10 Atherosclerotic heart disease of native coronary artery without angina pectoris; I11.9 Hypertensive heart disease without heart failure; E11.9 Type 2 diabetes mellitus without complications; M54.9 Dorsalgia, unspecified; G89.29 Other chronic pain; I25.2 Old myocardial infarction; M19.90 Unspecified osteoarthritis, unspecified site; Z59.0 Homelessness; Z86.73 Personal history of transient ischemic attack (TIA), and cerebral infarction without residual deficits
CPT/HCPCS: 51702; 99283

== ENCOUNTER 2018-10-20 08:25 | Emergency (ER) | payer MEDICARE, MEDICAID ==
[~2018-10-20] VITALS: Ht 170.2 cm; Wt 64.1 kg
[2018-10-20 08:29] VITALS: BP 150/68
[2018-10-20] MEDS ORDERED: HYDROcodone/APAP 5/325 TABLET PO ONE (10:00)
[2018-10-20] MEDS ORDERED: HYDROcodone/APAP 5/325 TABLET ONE (10:21)
--- NOTE | 2018-10-20 10:57 | NUR ---
PT STATES PAIN DOWN TO 6/10 POST MEDS. AMBULATING WELL. CLEARED FOR DISCHARGE. INSTRUCTIONS REVIEWED INCLUDING MEDICATIONS AND FOLLOW UP. PT VERBALIZED UNDERSTANDING.
== END 2018-10-20 10:59 | disposition home or self-care (01) ==
LOC: ED 09:27
DX: S16.1XXA Strain of muscle, fascia and tendon at neck level, initial encounter (principal); S39.012A Strain of muscle, fascia and tendon of lower back, initial encounter; I10 Essential (primary) hypertension; I25.10 Atherosclerotic heart disease of native coronary artery without angina pectoris; E11.9 Type 2 diabetes mellitus without complications; Z59.0 Homelessness; Z86.73 Personal history of transient ischemic attack (TIA), and cerebral infarction without residual deficits; W01.0XXA Fall on same level from slipping, tripping and stumbling without subsequent striking against object, initial encounter; Y93.89 Activity, other specified; Y92.410 Unspecified street and highway as the place of occurrence of the external cause; Y99.8 Other external cause status
CPT/HCPCS: 72050; 72110; 99283

== ENCOUNTER 2018-10-22 23:34 | Emergency (ER) | payer MEDICARE, MEDICAID ==
[~2018-10-22] VITALS: Ht 170.2 cm; Wt 63.0 kg
[2018-10-22 23:38] VITALS: BP 159/101
--- NOTE | 2018-10-23 00:25 | NUR ---
PT AWARE OF NEED FOR URINE SAMPLE. PT GIVEN BOTTLE OF WATER AND A URINAL.
[2018-10-23 00:27] LABS: BASOPHILS # (AUTO) 0.09 x10^3/uL (0-0.1); BASOPHILS % (AUTO) 1 % (0-1); EOSINOPHILS # (AUTO) 0.32 x10^3/uL (0-0.4); EOSINOPHILS % (AUTO) 4 % (1-7); LYMPHOCYTES % (AUTO) 20 % (22-44); MD NO; MEAN CORPUSCULAR HEMOGLOBIN 32.1 pg (27.5-34.5); MEAN CORPUSCULAR HGB CONC 33.7 g/dL (33.2-36.2); MEAN CORPUSCULAR VOLUME 95.1 fL (81-97); MEAN PLATELET VOLUME 8.5 fL (7.4-10.4); MONOCYTES # (AUTO) 0.89 x10^3/uL (0.2-0.8); MONOCYTES % (AUTO) 10 % (2-9); NEUTROPHILS # (AUTO) 5.66 x10^3/uL (1.8-6.8); NEUTROPHILS % (AUTO) 65 % (42-75); PLATELET COUNT 260 x10^3/uL (130-400); RED BLOOD COUNT 4.32 x10^6/uL (4.38-5.82)
[2018-10-23 00:37] LABS: ALBUMIN 3.2 g/dL (3.4-5.0); ANION GAP 5 mmol/L (5-15); CALCIUM 8.4 mg/dL (8.5-10.1); CHLORIDE 110 mmol/L (98-107); CREATININE 1.31 mg/dL (0.7-1.3)
[2018-10-23 00:58] LABS: MICROSCOPIC AUTO
[2018-10-23 01:28] LABS: CULTURE INDICATED? NO
== END 2018-10-23 01:57 | disposition home or self-care (01) ==
LOC: ED 10-23 00:10
DX: R06.00 Dyspnea, unspecified (principal); R42 Dizziness and giddiness; I25.10 Atherosclerotic heart disease of native coronary artery without angina pectoris; E11.9 Type 2 diabetes mellitus without complications; I11.9 Hypertensive heart disease without heart failure; I25.2 Old myocardial infarction; Z90.89 Acquired absence of other organs; Z86.73 Personal history of transient ischemic attack (TIA), and cerebral infarction without residual deficits; Z95.1 Presence of aortocoronary bypass graft
CPT/HCPCS: 36415; 71045; 80048; 81001; 82040; 85025; 93005; 99284

== ENCOUNTER 2018-11-21 18:55 | Emergency (ER) | payer MEDICARE, MEDICAID ==
[~2018-11-21] VITALS: Ht 170.2 cm; Wt 62.1 kg
[2018-11-21 18:59] VITALS: BP 156/96
--- NOTE | 2018-11-21 19:14 | NUR ---
PT HERE FOR LOWER BACK PAIN. PT SLIPPED ON ICE AND CAUSING INJURY. PT RESTING IN [facility] AT THIS TIME.
[2018-11-21] MEDS ORDERED: HYDROcodone/APAP 5/325 TABLET PO ONE (20:00)
[2018-11-21] MEDS ORDERED: HYDROcodone/APAP 5/325 TABLET ONE (20:00)
--- NOTE | 2018-11-21 20:02 | NUR ---
pt medicated for pain.
--- NOTE | 2018-11-21 21:01 | NUR ---
ALL RESULTS BACK, CHART UP FOR RECHECK.
--- NOTE | 2018-11-21 22:39 | NUR ---
Patient/Caregiver given discharge instructions and they have confirmed that they understand the instructions. Patient ambulatory with steady gait.
== END 2018-11-21 22:42 | disposition home or self-care (01) ==
LOC: ED 22:14
DX: S29.012A Strain of muscle and tendon of back wall of thorax, initial encounter (principal); S16.1XXA Strain of muscle, fascia and tendon at neck level, initial encounter; G89.11 Acute pain due to trauma; J20.8 Acute bronchitis due to other specified organisms; B97.89 Other viral agents as the cause of diseases classified elsewhere; I10 Essential (primary) hypertension; E11.9 Type 2 diabetes mellitus without complications; I25.2 Old myocardial infarction; I25.10 Atherosclerotic heart disease of native coronary artery without angina pectoris; F17.200 Nicotine dependence, unspecified, uncomplicated; Z72.9 Problem related to lifestyle, unspecified; Z86.73 Personal history of transient ischemic attack (TIA), and cerebral infarction without residual deficits; W01.0XXA Fall on same level from slipping, tripping and stumbling without subsequent striking against object, initial encounter; Y93.89 Activity, other specified; Y92.89 Other specified places as the place of occurrence of the external cause; Y99.8 Other external cause status
CPT/HCPCS: 71045; 72110; 72125; 99284; J7512

== ENCOUNTER 2019-01-01 14:53 | Emergency (ER) | payer MEDICARE, MEDICAID ==
[~2019-01-01] VITALS: Ht 167.6 cm; Wt 65.3 kg
[2019-01-01] MEDS ORDERED: ASPIRIN 81 MG TABLET CHEW PO ONE (15:30)
[2019-01-01 15:32] LABS: BASOPHILS # (AUTO) 0.04 x10^3/uL (0-0.1); BASOPHILS % (AUTO) 1 % (0-1); EOSINOPHILS # (AUTO) 0.17 x10^3/uL (0-0.4); EOSINOPHILS % (AUTO) 2 % (1-7); LYMPHOCYTES % (AUTO) 21 % (22-44); MD NO; MEAN CORPUSCULAR HEMOGLOBIN 32.1 pg (27.5-34.5); MEAN CORPUSCULAR HGB CONC 33.8 g/dL (33.2-36.2); MEAN PLATELET VOLUME 8.5 fL (7.4-10.4); MONOCYTES # (AUTO) 0.77 x10^3/uL (0.2-0.8); MONOCYTES % (AUTO) 9 % (2-9); NEUTROPHILS # (AUTO) 5.59 x10^3/uL (1.8-6.8); NEUTROPHILS % (AUTO) 68 % (42-75); PLATELET COUNT 265 x10^3/uL (130-400); RED BLOOD COUNT 4.13 x10^6/uL (4.38-5.82)
[2019-01-01 15:41] LABS: ALBUMIN 3.8 g/dL (3.4-5.0); ANION GAP 7 mmol/L (5-15); CHLORIDE 110 mmol/L (98-107)
[2019-01-01 15:44] LABS: TROPONIN I < 0.015 ng/mL (0.000-0.045)
--- NOTE | 2019-01-01 18:45 | NUR ---
First contact with pt. Pt states, "I went on a train trip to [place] over [employer] day and I wasn't feeling well. I have shortness of breath and my vision is blurry and my chest hurts. These symptoms hae been going on for three days now."
--- NOTE | 2019-01-01 18:57 | NUR ---
Provided report to PADMINI Jenkins. All questions answered. PADMINI Jenkins to assume care of pt.
[2019-01-01] MEDS ORDERED: ASPIRIN 81 MG TABLET CHEW ONE (18:58)
--- NOTE | 2019-01-01 19:14 | NUR ---
PT MEDICATED WITH ORDERED [facility]. PT STATED HE DOES NOT WANT TO DO CONTRAST WITH MRI. ERP AWARE, HAS SPOKEN WITH PT ABOUT OPTIONS. PT STATED HE WILL THINK ABOUT IT. WILL RECHECK PT FOR DECISION.
[2019-01-01] MEDS ORDERED: LORazepam 1MG TABLET PO ONE (19:30)
--- NOTE | 2019-01-01 19:34 | NUR ---
PT STATED HE DOES NOT WANT THE MRI. STATED HE WILL COME BACK IF HE FEELS HE NEEDS ONE
[2019-01-01 20:21] VITALS: BP 116/63
== END 2019-01-01 20:22 | disposition home or self-care (01) ==
LOC: ED 18:31
DX: H53.8 Other visual disturbances (principal); Z86.73 Personal history of transient ischemic attack (TIA), and cerebral infarction without residual deficits; I25.2 Old myocardial infarction; I10 Essential (primary) hypertension; E11.9 Type 2 diabetes mellitus without complications
CPT/HCPCS: 36415; 71046; 80048; 82040; 84484; 85025; 93005; 99284

== ENCOUNTER 2019-01-03 06:01 | Emergency (ER) | payer MEDICARE, MEDICAID ==
[~2019-01-03] VITALS: Ht 172.7 cm; Wt 68.2 kg
[2019-01-03 06:06] VITALS: BP 128/68
--- NOTE | 2019-01-03 07:01 | NUR ---
SOB X FEW MIN NEAR CIRCUS CIRCUS AND CAME IMMEDIATELY TO ED. PT STATES HX COPD. +CIGS. PT DENIES CP. PT RESTING ON GURNEY. NADN. PT REFUSING TO CHANGE INTO GOWN TO HAVE MONITORS PLACED AT THIS TIME.
== END 2019-01-03 07:29 | disposition home or self-care (01) ==
LOC: ED 07:20
DX: H53.131 Sudden visual loss, right eye (principal); I25.2 Old myocardial infarction; I25.10 Atherosclerotic heart disease of native coronary artery without angina pectoris; I10 Essential (primary) hypertension
CPT/HCPCS: 93005; 99283

== ENCOUNTER 2019-01-21 16:33 | Emergency (ER) | payer MEDICARE, MEDICAID ==
[~2019-01-21] VITALS: Ht 170.2 cm; Wt 64.6 kg
[2019-01-21 17:12] VITALS: BP 136/75
[2019-01-21 17:13] LABS: BASOPHILS # (AUTO) 0.05 x10^3/uL (0-0.1); BASOPHILS % (AUTO) 1 % (0-1); EOSINOPHILS # (AUTO) 0.08 x10^3/uL (0-0.4); EOSINOPHILS % (AUTO) 1 % (1-7); LYMPHOCYTES # (AUTO) 1.54 x10^3/uL (1-3.4); LYMPHOCYTES % (AUTO) 17 % (22-44); MD NO; MEAN CORPUSCULAR HGB CONC 32.8 g/dL (33.2-36.2); MEAN CORPUSCULAR VOLUME 94.7 fL (81-97); MEAN PLATELET VOLUME 8.4 fL (7.4-10.4); MONOCYTES # (AUTO) 0.86 x10^3/uL (0.2-0.8); MONOCYTES % (AUTO) 10 % (2-9); NEUTROPHILS # (AUTO) 6.48 x10^3/uL (1.8-6.8); NEUTROPHILS % (AUTO) 72 % (42-75); PLATELET COUNT 259 x10^3/uL (130-400); RED BLOOD COUNT 4.52 x10^6/uL (4.38-5.82); RED CELL DISTRIBUTION WIDTH 14.7 % (9.4-14.8)
--- NOTE | 2019-01-21 17:13 | NUR ---
PT STATES INCREASED DIFFICULTY WITH LOSS OF VISION RIGHT EYE, BALANCE WORSENING AND FEELS SOB
[2019-01-21 17:14] LABS: ANION GAP 7 mmol/L (5-15); CALCIUM 9.2 mg/dL (8.5-10.1); CHLORIDE 107 mmol/L (98-107); CREATININE 1.24 mg/dL (0.7-1.3)
[2019-01-21 17:18] LABS: TROPONIN I < 0.015 ng/mL (0.000-0.045)
== END 2019-01-21 18:25 | disposition home or self-care (01) ==
LOC: ED 18:19
DX: H54.61 Unqualified visual loss, right eye, normal vision left eye (principal); R06.02 Shortness of breath; I25.10 Atherosclerotic heart disease of native coronary artery without angina pectoris; E11.9 Type 2 diabetes mellitus without complications; I11.9 Hypertensive heart disease without heart failure; G89.29 Other chronic pain; M19.90 Unspecified osteoarthritis, unspecified site; Z86.73 Personal history of transient ischemic attack (TIA), and cerebral infarction without residual deficits; Z90.89 Acquired absence of other organs; Z95.1 Presence of aortocoronary bypass graft
CPT/HCPCS: 36415; 71045; 80048; 82040; 83880; 84484; 85025; 93005; 99284

== ENCOUNTER 2019-02-16 18:33 | Emergency (ER) | payer MEDICARE, MEDICAID ==
[~2019-02-16] VITALS: Ht 170.2 cm; Wt 63.7 kg
--- NOTE | 2019-02-16 19:08 | NUR ---
PATIENT BIB [facility] FOR NECK PAIN/RT HAND PAIN, PATIENT REPORTS DRINKING "3 BEERS" PER [facility], PATIENT FELL, DENIES HITTING HEAD/LOC. A+OX4. HX OF SCOLIOSIS. PATIENT TO CT AT THIS TIME. NO ADDITIONAL NEEDS.
--- NOTE | 2019-02-16 20:52 | NUR ---
assumed care for this PT. PT will be road tested at 2400
--- NOTE | 2019-02-16 21:15 | NUR ---
PT ASLEEP FAILED ROAD TEST WILL TRY AGAIN IN 2 HOURS.
--- NOTE | 2019-02-16 22:30 | NUR ---
PT ASLEEP AND VSS WITH NO DISTRESS ROAD TEST AGAIN AT 0000
[2019-02-16 23:38] VITALS: BP 115/73
--- NOTE | 2019-02-17 01:00 | NUR ---
PT ASLEEP NO CHANGE ROAD TEST FAILED AGAIN WILL TRY AGAIN AT 0300
--- NOTE | 2019-02-17 03:42 | NUR ---
PT ASLEEP VSS AND PT TO BE DC HOME AT 0530
--- NOTE | 2019-02-17 03:42 | NUR ---
PT ASLEEP NO CHANGE IN STATUS
== END 2019-02-17 05:23 | disposition home or self-care (01) ==
LOC: ED 18:35
DX: S16.1XXA Strain of muscle, fascia and tendon at neck level, initial encounter (principal); M25.531 Pain in right wrist; I10 Essential (primary) hypertension; I25.10 Atherosclerotic heart disease of native coronary artery without angina pectoris; E11.9 Type 2 diabetes mellitus without complications; I25.2 Old myocardial infarction; F17.210 Nicotine dependence, cigarettes, uncomplicated; Z86.73 Personal history of transient ischemic attack (TIA), and cerebral infarction without residual deficits; Z90.89 Acquired absence of other organs; Z95.1 Presence of aortocoronary bypass graft
CPT/HCPCS: 70450; 72125; 99284